=== PATIENT | female | born 2000 | race Caucasian/White ===

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

== ENCOUNTER 2022-01-15 12:00 | Emergency (ER) | payer OTHER ==
[2022-01-15 12:11] VITALS: BMI 34.4
[2022-01-15] MEDS ORDERED: ONDANSETRON 4 MG/2 ML VIAL IVPUSH ONE (12:40)
[2022-01-15] MEDS ORDERED: ACETAMINOPHEN 1000 MG/100 ML BAG IVPB ONE (12:40)
[2022-01-15] MEDS ORDERED: ACETAMINOPHEN INJECTION 100 ML IVPB ONE (13:35)
[2022-01-15] MEDS ORDERED: ONDANSETRON 4 MG/2 ML VIAL ONE (13:35)
[2022-01-15 13:59] LABS: BASO % 0.5 % (0-2.0); EOS % 0.4 % (0-4.5); HEMATOCRIT 34.1 % (32.4-45.2); LYMPH % 8.2 % (8-40); MCHC 32.4 g/dl (32.0-36.0); MEAN CELL VOLUME 74.2 fl (80-96); MEAN PLT VOLUME 8.8 fl (7.5-11.1); MONO % 8.5 % (3.8-10.2); NEUT % 82.4 % (42.8-82.8); PLATELET COUNT 337 10^3/uL (134-434); RBC 4.59 M/mm3 (3.60-5.2); RDW 15.5 % (11.6-15.6); WHITE BLOOD COUNT 10.2 K/mm3 (4.0-10.0)
[2022-01-15 14:03] LABS: EPI CELLS >36 /uL (0-25.1); HYALINE CASTS 11 /uL (0-3.1); PH,URINE 6.5 (5.0-8.0); URINE APPEARANCE CLOUDY; URINE BACTERIA 8946 /uL (0-1359); URINE BILIRUBIN NEGATIVE (NEGATIVE); URINE COLOR DK YELLOW; URINE GLUCOSE (UA) NEGATIVE (NEGATIVE); URINE KETONE 4+ (NEGATIVE); URINE LEUK ESTERASE 1+ (NEGATIVE); URINE NITRITE NEGATIVE (NEGATIVE); URINE PROTEIN 1+ (NEGATIVE); URINE WBC 130 /uL (0-25.8)
[2022-01-15 14:17] LABS: ALBUMIN 3.5 g/dl (3.4-5.0)
[2022-01-15 14:18] LABS: CALCIUM 8.7 mg/dL (8.5-10.1)
[2022-01-15 14:21] LABS: TOT PROT 8.2 g/dl (6.4-8.2)
[2022-01-15 14:22] LABS: BILIRUBIN,TOTAL 0.7 mg/dL (0.2-1)
[2022-01-15] MEDS ORDERED: SODIUM CHLORIDE 1,000 ML IV STA (14:23)
[2022-01-15 14:34] LABS: BLOOD UREA NITROGEN 7.2 mg/dL (7-18); CREATININE 0.7 mg/dL (0.55-1.3)
[2022-01-15 14:41] LABS: URINE RBC 50.3 /uL (0-23.9)
[2022-01-15] MEDS ORDERED: CEFTRIAXONE 1,000 MG in DEXTROSE 5%-WATER - 50 ML IM ONE (16:02)
[2022-01-15] MEDS ORDERED: cefTRIAXone SODIUM 1 GM VIAL ONE (16:07)
[2022-01-15] MEDS ORDERED: CEFTRIAXONE 1 GM/50 ML BAG ONE (16:09)
[2022-01-15 16:32] VITALS: BP 123/76; PULSE 86; TEMP 97.8
[2022-01-15] MEDS ORDERED: CEFTRIAXONE 1 GM in DEXTROSE 5%-WATER - 100 ML IVPB ONE (17:01)
== END 2022-01-15 17:32 | disposition home or self-care (01) ==
LOC: JER 12:00
PROC: 3E0333Z Introduction of Anti-inflammatory into Peripheral Vein, Percutaneous Approach (ICD-10-PCS; principal; 2022-01-15)
PROC: 3E03329 Introduction of Other Anti-infective into Peripheral Vein, Percutaneous Approach (ICD-10-PCS; 2022-01-15)
PROC: 3E033GC Introduction of Other Therapeutic Substance into Peripheral Vein, Percutaneous Approach (ICD-10-PCS; 2022-01-15)
PROC: 3E0337Z Introduction of Electrolytic and Water Balance Substance into Peripheral Vein, Percutaneous Approach (ICD-10-PCS; 2022-01-15)
DX: N30.00 Acute cystitis without hematuria (principal)
CPT/HCPCS: 36415; 80053; 81003; 83690; 84703; 85025; 87086; 87804; 99284-25

== ENCOUNTER 2022-03-29 09:01 | Emergency (ER) | payer OTHER ==
[2022-03-29 09:24] VITALS: BP 113/65; PULSE 79; TEMP 98.8; BMI 35.1
[2022-03-29] MEDS ORDERED: IBUPROFEN 600 MG TABLET (FP) PO ONE ×2 (10:17→10:42)
== END 2022-03-29 11:03 | disposition home or self-care (01) ==
LOC: JERFT 09:01
DX: M25.571 Pain in right ankle and joints of right foot (principal)
CPT/HCPCS: 73610-TC-LT-FY; 73630-TC-LT; 99283-25

== ENCOUNTER → 2023-12-03 | Day surgery (SDC) | payer OTHER | END | disposition home or self-care (01) | LOC: JRADIR 09:01 | PROVIDERS: ATTEND Internal Medicine Endocrinology, Diabetes & Metabolism | PROC: 0G9G3ZX Drainage of Left Thyroid Gland Lobe, Percutaneous Approach, Diagnostic (ICD-10-PCS; principal; 2023-12-03) | DX: E04.2 Nontoxic multinodular goiter (principal) | CPT/HCPCS: 10005; 76942; 88173; 88305-TC ==

== ENCOUNTER 2025-05-20 10:55 | Emergency (ER) | payer OTHER ==
[2025-05-20 11:09] VITALS: BP 117/87; RESP 16; TEMP 98.8; BMI 31.3
[2025-05-20] MEDS: FAMOTIDINE 20 MG/50 ML IVPB 20 MG/50 ML MG IVPB ONE (12:00)
[2025-05-20 12:07] LABS: HCG,QUALITATIVE URINE Negative
[2025-05-20] MEDS ORDERED: ACETAMINOPHEN INJECTION 100 ML ONE (12:15)
[2025-05-20] MEDS ORDERED: FAMOTIDINE 20 MG/50 ML IVPB 20 MG/50 ML MG IVPB ONE (12:15)
[2025-05-20 12:30] LABS: ABSOLUTE IMMATURE GRANULOCYTES 0.01 x10^3/uL (0.0-0.031); BASOPHILS # 0.04 x10^3/uL (0.01-0.08); EOSINOPHIL % 1.7 % (0.7-5.8); EOSINOPHILS # 0.06 x10^3/uL (0.04-0.36); MCHC 30.7 g/dl (32.2-35.5); MEAN CELL VOLUME 76.7 fl (79.4-94.8); MEAN PLT VOLUME 11.2 fl (9.4-12.3); MONOCYTE # 0.38 x10^3/uL (0.24-0.86); MONOCYTE % 10.8 % (4.7-12.5); RDW 15.6 % (12.1-16.5)
[2025-05-20 12:33] LABS: INR 1.22 (0.83-1.09); PROTHROMBIN TIME (PATIENT) 13.5 SEC (9.7-13.0)
[2025-05-20 12:36] LABS: ACTIVATED PTT 35.6 SECONDS (25.2-36.5)
[2025-05-20 12:38] LABS: ALK PHOS 46 U/L (45-117); CO2 21 mmol/L (21-32); CREATININE 0.8 mg/dl (0.6-1.3); GLUCOSE,RANDOM 73 mg/dl (74-106); SGOT/AST 33 U/L (15-37); SGPT/ALT 22 U/L (7-52); TOT PROT 7.2 g/dl (6.4-8.2)
[2025-05-20] MEDS: ACETAMINOPHEN 1000 MG/100 ML BAG IVPB ONE (12:49)
[2025-05-20] MEDS ORDERED: ONDANSETRON 4 MG/2 ML VIAL ONE (14:01)
[2025-05-20] MEDS: ONDANSETRON 4 MG/2 ML VIAL IVPUSH ONE (14:05)
[2025-05-20 14:47] VITALS: PULSE 75
[2025-05-20 18:07] LABS: HIV INTERPRETATION NEGATIVE (NEGATIVE)
[2025-05-20 18:08] LABS: HCV DIAGNOSTIC IN-HOUSE W/RFLX NON-REACTIVE (NONREACTIVE)
== END 2025-05-20 14:25 | disposition home or self-care (01) ==
LOC: FER 10:55
PROC: 3E033GC Introduction of Other Therapeutic Substance into Peripheral Vein, Percutaneous Approach (ICD-10-PCS; principal; 2025-05-20)
PROC: 3E033NZ Introduction of Analgesics, Hypnotics, Sedatives into Peripheral Vein, Percutaneous Approach (ICD-10-PCS; 2025-05-20)
PROC: 3E033GC Introduction of Other Therapeutic Substance into Peripheral Vein, Percutaneous Approach (ICD-10-PCS; 2025-05-20)
DX: R07.81 Pleurodynia (principal); R06.02 Shortness of breath; R50.9 Fever, unspecified; R51.9 Headache, unspecified
CPT/HCPCS: 36415; 71046-TC-FY; 80053; 81003; 81015; 83690; 84484; 84703; 85025; 85379; 85610; 85730; 86803; 87086; 87389; 87637-QW; 93005; 99285-25